=== PATIENT | female | born 1965 | race Caucasian/White ===

== ENCOUNTER 2019-11-15 15:53 | Emergency (ER) | payer SELFPAY ==
[~2019-11-15] VITALS: Ht 162.6 cm; Wt 70.3 kg
[2019-11-15 16:14] VITALS: Ht 162.6 cm; Wt 70.3 kg
[2019-11-15 18:09] VITALS: BP 142/82
== END 2019-11-15 18:09 | disposition home or self-care (01) ==
LOC: ED 15:53
DX: Z20.828 Contact with and (suspected) exposure to other viral communicable diseases (principal)
CPT/HCPCS: 87804; Q0092

== ENCOUNTER 2019-11-30 13:54 | Emergency (ER) | payer SELFPAY ==
[~2019-11-30] VITALS: Ht 157.5 cm; Wt 54.4 kg
[2019-11-30 13:57] VITALS: Ht 157.5 cm; Wt 54.4 kg
[2019-11-30 15:04] VITALS: BP 153/91
== END 2019-11-30 15:04 | disposition home or self-care (01) ==
LOC: ED 13:54
DX: Z20.828 Contact with and (suspected) exposure to other viral communicable diseases (principal)